=== PATIENT | male | born 1975 | race Two or more races ===

== ENCOUNTER 2017-07-16 10:52 | Emergency (ER) | payer OTHER ==
[~2017-07-16] VITALS: Ht 180.3 cm; Wt 172.4 kg
[~2017-07-16 10:52] MED LIST: ATOR10TA PO
[2017-07-16 11:04] VITALS: BP 178/111
[2017-07-16] MEDS ORDERED: cloNIDine HCL 0.1 MG TAB PO ONE (12:00)
== END 2017-07-16 12:37 | disposition home or self-care (01) ==
LOC: ER 10:52
DX: R04.0 Epistaxis (principal); I10 Essential (primary) hypertension; E78.5 Hyperlipidemia, unspecified

== ENCOUNTER 2021-01-06 11:32 | Inpatient (IN) | payer OTHER ==
[~2021-01-06] VITALS: Ht 180.3 cm; Wt 217.0 kg
[2021-01-06] MEDS ORDERED: cloNIDine HCL 0.1 MG TAB PO ONE ×2 (12:45→13:00)
[2021-01-06] MEDS ORDERED: cloNIDine HCL 0.1 MG TAB ONE (12:59)
[2021-01-06 13:46] LABS: Basophils # (auto) 0 10 ^3/uL (0-0.2); Basophils % (auto) 0.3 % (0.0-2.0); Eosinophils # (auto) 0.1 10 ^3/uL (0-0.8); Lymphocytes # (auto) 1.9 10 ^3/uL (0.4-5.4); Monocytes # (auto) 0.9 10 ^3/uL (0-1.3)
[2021-01-06 13:48] LABS: Eosinophils % (auto) 0.9 % (0.0-7.0); Hematocrit 39.3 % (41.0-53.0); Hemoglobin 13.2 g/dL (13.5-17.5); Lymphocytes % (auto) 15.6 % (10.0-50.0); Mean Corpuscular Hemoglobin 26.5 pg (28.0-32.0); Mean Corpuscular Hgb Conc. 33.6 g/dL (32.0-36.0); Mean Corpuscular Volume 78.7 fL (80.0-100.0); Monocytes % (auto) 7.6 % (0.0-12.0); Neutrophils # (auto) 9.3 10 ^3/uL (1.6-8.6); Neutrophils % (auto) 75.6 % (37.0-80.0); Platelet Count (auto) 274 10^3/uL (140-450); Red Cell Distribution Width 15.7 % (11.8-14.3); White Blood Cell 12.3 10^3/uL (4.4-10.8)
[2021-01-06 14:05] LABS: Albumin 3.5 g/dL (3.4-5.0); Calcium 8.9 mg/dL (8.5-10.1); Potassium 3.9 mmol/L (3.5-5.1)
[2021-01-06 14:06] LABS: INR 1.11 (0.9-1.15); Partial Thromboplastin Time 26.2 sec (23.0-31.2)
[2021-01-06 14:08] LABS: Bilirubin, Total 0.3 mg/dL (0.2-1.0); Total Protein 8.1 g/dL (6.4-8.2)
[2021-01-06] MEDS ORDERED: hydrALAZINE HCL 10 MG TAB PO ONE (15:00)
[2021-01-06] MEDS ORDERED: hydrALAZINE HCL 25 MG TAB PO ONE (15:00)
[2021-01-06] MEDS ORDERED: hydrALAZINE HCL 20 MG/ML VL IV ONE (16:30)
[2021-01-06] MEDS ORDERED: ACETAMINOPHEN 500 MG TAB PO PRN (16:45)
[2021-01-06] MEDS ORDERED: MORPHINE SULF INJ 2 MG/ML SYRINGE 1ML IV PRN ×2 (16:45)
[2021-01-06] MEDS ORDERED: ONDANSETRON HCL 4 MG/2 ML VIAL IV PRN (16:45)
[2021-01-06] MEDS ORDERED: NITROGLYCERIN 0.4 MG SL TAB SL PRN (16:45)
[2021-01-06] MEDS: ENALAPRILAT 1.25 MG/ML-1ML VIAL IV PRN (17:34)
[2021-01-06] MEDS ORDERED: FUROSEMIDE 20 MG/2 ML VIAL IV ONE (20:00)
[2021-01-06] MEDS: hydrALAZINE HCL 25 MG TAB PO SCH (21:20)
[2021-01-06] MEDS: CARVEDILOL 12.5 MG TAB PO SCH (21:21)
[2021-01-06 23:45] VITALS: BP 163/116
[2021-01-07] MEDS: HYDROcodone-ACET 5/325MG TAB PO PRN ×2 (00:49→19:56)
[2021-01-07] MEDS ORDERED: HYDR-4296 PO (03:15)
[2021-01-07] MEDS ORDERED: CARV25TA55 PO (03:15)
[2021-01-07] MEDS ORDERED: SALINE 0.65 % NASAL SPRAY 45ML BOTTLE EACHNOSTRI PRN (04:30)
[2021-01-07 05:00] VITALS: BP 163/116
[2021-01-07] MEDS: hydrALAZINE HCL 25 MG TAB PO SCH ×3 (05:32→21:44)
[2021-01-07 06:02] LABS: Basophils # (auto) 0 10 ^3/uL (0-0.2); Basophils % (auto) 0.3 % (0.0-2.0); Eosinophils # (auto) 0.1 10 ^3/uL (0-0.8); Hematocrit 39.3 % (41.0-53.0); Hemoglobin 12.6 g/dL (13.5-17.5); Lymphocytes # (auto) 2.2 10 ^3/uL (0.4-5.4); Lymphocytes % (auto) 18.9 % (10.0-50.0); Mean Corpuscular Hemoglobin 25.4 pg (28.0-32.0); Mean Corpuscular Volume 79.3 fL (80.0-100.0); Monocytes % (auto) 8.7 % (0.0-12.0); Neutrophils # (auto) 8.1 10 ^3/uL (1.6-8.6); Neutrophils % (auto) 71.1 % (37.0-80.0); Nucleated Red Blood Cells % 0.1 %; Platelet Count (auto) 267 10^3/uL (140-450); Red Blood Cells 4.96 10^6/uL (4.5-5.90); Red Cell Distribution Width 15.5 % (11.8-14.3); White Blood Cell 11.5 10^3/uL (4.4-10.8)
[2021-01-07 06:21] LABS: Calcium 9.1 mg/dL (8.5-10.1)
[2021-01-07 06:24] LABS: BUN/Creatinine Ratio 16.3
[2021-01-07] MEDS: ENALAPRILAT 1.25 MG/ML-1ML VIAL IV PRN ×2 (06:50→17:04)
[2021-01-07 08:30] VITALS: BP 160/119
[2021-01-07] MEDS: FAMOTIDINE 20 MG TAB PO SCH (10:14)
[2021-01-07] MEDS: CARVEDILOL 12.5 MG TAB PO SCH ×2 (10:15→21:44)
[2021-01-07 12:30] VITALS: BP 140/91
[2021-01-07] MEDS ORDERED: amLODIPine BESYLATE 5 MG TAB PO ONE (12:30)
[2021-01-07] MEDS ORDERED: FUROSEMIDE 20 MG TAB PO ONE (12:30)
[2021-01-07] MEDS ORDERED: AZITHROMYCIN 250 MG TAB PO ONE (12:30)
[2021-01-07] MEDS: LORazepam 0.5 MG TAB PO PRN (13:38)
[2021-01-07 17:00] VITALS: BP 172/99
[2021-01-07] MEDS ORDERED: ACETAMINOPHEN 500 MG TAB PO PRN (17:15)
[2021-01-07] MEDS ORDERED: ISOSORBIDE MONONITRATE ER 60 MG TAB PO ONE (18:30)
[2021-01-07 22:00] VITALS: BP 129/84
[2021-01-07 22:46] LABS: Urine Bacteria FEW /hpf (None Seen); Urine Blood Negative /uL (Negative); Urine Mucus FEW (None Seen); Urine Specific Gravity 1.019 (1.001-1.035); Urine WBC 1 /hpf (0 - 3)
[2021-01-08] MEDS: LORazepam 0.5 MG TAB PO PRN (03:22)
[2021-01-08 05:00] VITALS: BP 136/86
[2021-01-08] MEDS: hydrALAZINE HCL 25 MG TAB PO SCH ×3 (05:44→22:11)
[2021-01-08 07:00] LABS: Basophils # (auto) 0 10 ^3/uL (0-0.2); Eosinophils # (auto) 0.1 10 ^3/uL (0-0.8); Hematocrit 37.3 % (41.0-53.0); Hemoglobin 12.3 g/dL (13.5-17.5); Red Cell Distribution Width 15.6 % (11.8-14.3)
[2021-01-08 07:11] LABS: Basophils % (auto) 0.3 % (0.0-2.0); Eosinophils % (auto) 1.1 % (0.0-7.0); Lymphocytes # (auto) 2.1 10 ^3/uL (0.4-5.4); Lymphocytes % (auto) 17.6 % (10.0-50.0); Mean Corpuscular Volume 78.8 fL (80.0-100.0); Monocytes % (auto) 8.2 % (0.0-12.0); Neutrophils # (auto) 8.7 10 ^3/uL (1.6-8.6); Neutrophils % (auto) 72.8 % (37.0-80.0); Nucleated Red Blood Cells % 0.1 %; Platelet Count (auto) 246 10^3/uL (140-450); Red Blood Cells 4.73 10^6/uL (4.5-5.90); White Blood Cell 11.9 10^3/uL (4.4-10.8)
[2021-01-08 07:49] LABS: Albumin 3.3 g/dL (3.4-5.0); BUN/Creatinine Ratio 15.4; Total Protein 7.9 g/dL (6.4-8.2)
[2021-01-08 08:00] VITALS: BP 162/103
[2021-01-08 09:00] VITALS: BP 162/103
[2021-01-08] MEDS: FAMOTIDINE 20 MG TAB PO SCH (09:49)
[2021-01-08] MEDS: AZITHROMYCIN 250 MG TAB PO SCH (09:50)
[2021-01-08] MEDS: CARVEDILOL 12.5 MG TAB PO SCH ×2 (09:50→22:12)
[2021-01-08] MEDS: FUROSEMIDE 20 MG TAB PO SCH (09:51)
[2021-01-08] MEDS ORDERED: amLODIPine BESYLATE 5 MG TAB PO SCH (10:00)
[2021-01-08 13:00] VITALS: BP 155/104
[2021-01-08] MEDS ORDERED: amLODIPine BESYLATE 5 MG TAB PO ONE (13:45)
[2021-01-08 16:42] VITALS: BP 150/109
[2021-01-08 21:55] VITALS: BP 141/103
[2021-01-09 05:00] VITALS: BP 152/110
[2021-01-09] MEDS: hydrALAZINE HCL 25 MG TAB PO SCH ×2 (05:40→14:00)
[2021-01-09 06:58] LABS: Basophils # (auto) 0 10 ^3/uL (0-0.2); Basophils % (auto) 0.2 % (0.0-2.0); Eosinophils # (auto) 0.2 10 ^3/uL (0-0.8); Lymphocytes # (auto) 2.5 10 ^3/uL (0.4-5.4); Monocytes # (auto) 1.1 10 ^3/uL (0-1.3)
[2021-01-09 07:01] LABS: Eosinophils % (auto) 1.6 % (0.0-7.0); Hematocrit 39.5 % (41.0-53.0); Hemoglobin 13.5 g/dL (13.5-17.5); Lymphocytes % (auto) 20.4 % (10.0-50.0); Mean Corpuscular Hgb Conc. 34.2 g/dL (32.0-36.0); Monocytes % (auto) 9.1 % (0.0-12.0); Neutrophils # (auto) 8.4 10 ^3/uL (1.6-8.6); Neutrophils % (auto) 68.7 % (37.0-80.0); Nucleated Red Blood Cells % 0.1 %; Platelet Count (auto) 259 10^3/uL (140-450); Red Cell Distribution Width 15.3 % (11.8-14.3); White Blood Cell 12.3 10^3/uL (4.4-10.8)
[2021-01-09 07:04] LABS: Potassium 3.8 mmol/L (3.5-5.1)
[2021-01-09 07:15] LABS: BUN/Creatinine Ratio 14.8; Calcium 9.2 mg/dL (8.5-10.1)
[2021-01-09] MEDS: AZITHROMYCIN 250 MG TAB PO SCH (09:39)
[2021-01-09] MEDS: CARVEDILOL 12.5 MG TAB PO SCH (09:40)
[2021-01-09] MEDS: FAMOTIDINE 20 MG TAB PO SCH (09:41)
[2021-01-09] MEDS: FUROSEMIDE 20 MG TAB PO SCH (09:41)
[2021-01-09] MEDS ORDERED: amLODIPine BESYLATE 5 MG TAB PO SCH (10:00)
[2021-01-09 10:09] VITALS: BP 160/102
[2021-01-09 13:00] VITALS: BP 143/100
== END 2021-01-09 14:31 | disposition home or self-care (01) | DRG 194 ==
LOC: ER 11:32 → TELE 16:33 → TELE-EAST 23:08
PROVIDERS: ADMIT Nurse Practitioner Acute Care; ATTEND Internal Medicine
PROC: 2Y41X5Z Packing of Nasal Region using Packing Material (ICD-10-PCS; principal; 2021-01-06)
DX: I11.0 Hypertensive heart disease with heart failure (principal); I16.1 Hypertensive emergency; R65.10 Systemic inflammatory response syndrome (SIRS) of non-infectious origin without acute organ dysfunction; D63.8 Anemia in other chronic diseases classified elsewhere; I50.43 Acute on chronic combined systolic (congestive) and diastolic (congestive) heart failure; E66.01 Morbid (severe) obesity due to excess calories; R04.0 Epistaxis; Z20.822 Contact with and (suspected) exposure to COVID-19; J98.11 Atelectasis; E78.5 Hyperlipidemia, unspecified; E87.1 Hypo-osmolality and hyponatremia; Z79.899 Other long term (current) drug therapy; Z86.79 Personal history of other diseases of the circulatory system; Z82.49 Family history of ischemic heart disease and other diseases of the circulatory system; Z83.3 Family history of diabetes mellitus; Z68.44 Body mass index [BMI] 60.0-69.9, adult
CPT/HCPCS: 30901; 36415; 71045; 80048; 80053; 81001; 83735; 85025; 85610; 85730; 87070; 87077; 87186; 87205; 87426; 93005; 96374; 96375; G0378